=== PATIENT | female | born 1980 | race Caucasian/White ===

== ENCOUNTER 2018-03-29 11:10 | Emergency (ER) | payer BC, MEDICAID ==
[2018-03-29] MEDS ORDERED: LORAZEPAM 2 MG/ML VIAL IV ONE (11:31)
--- NOTE | 2018-03-29 11:31 | Emergency Department Record ---
History of Present Illness - General Chief Complaint: Shortness of breath Stated Complaint: BREANN.CHEST TIGHNESS Time Seen by Provider: 03/29/18 11:21 Source: Patient Mode of Arrival: Ambulatory Limitations: No limitations - History of Present Illness Initial Comments: The patient is here due to having an anxiety attack for the last 2 hours. She has had R sided posterior neck pain with radiation to the R arm for about 10 days. The pain is worse with movement and ROM of the neck and arm. She has seen a chiropracter for it twice with little relief. Today she has developed R upper sharp stabbing CP that seems to be worse with deep breathing which is causing her to have an anxiety attack which she has a hx of. There has been no L sided CP, fever, cough, sputum production, leg pain, swelling, or recent travel. MD Complaint: Anxiety, Shortness of breath Onset/Timin -: Minutes(s) Improves With: Nothing Worsens With: Nothing Associated Symptoms: Denies other symptoms, Nausea/vomiting - Related Data Previous Rx's Medication Instructions Recorded Methylprednisolone [Medrol Dose 4 mg PO DAILY #1 tab.ds.pk 03/29/18 Pack] Allergies Allergy/AdvReac Type Severity Reaction Status Date / Time Sulfa (Sulfonamide Allergy Unknown HIVES Verified 03/29/18 11:23 Antibiotics) [SULFA (SULFONAMIDE ANTIBIOTICS)] Travel Screening - Travel/Exposure Within Last 30 Days Have you traveled within the last 30 days?: No - Travel/Exposure Within Last Year Have you traveled outside the [place] in the last year?: No - Additonal Travel Details Have you been exposed to anyone with a communicable illness?: No - Travel Symptoms Symptom Screening: None Review of Systems Constitutional: Denies: Chills, Fever Eyes: Denies: Eye discharge ENT: Denies: Congestion Respiratory: Denies: Cough, Dyspnea Cardiovascular: Denies: Arrhythmia Endocrine: Denies: Fatigue Gastrointestinal: Denies: Diarrhea, Vomiting Genitourinary: Denies: Dysuria Musculoskeletal: Denies: Back pain Skin: Denies: Bruising Past Medical History - SOCIAL HISTORY Smoking Status: Never smoker Alcohol Use: None Drug Use: None - RESPIRATORY Hx Respiratory Disorders: Yes Hx Asthma: Yes (sports induced) - CARDIOVASCULAR Hx Cardio Disorders: No - NEURO Hx Neuro Disorders: No - GI Hx GI Disorders: No - Hx Genitourinary Disorders: No - ENDOCRINE Hx Endocrine Disorders: Yes Hx Diabetes: No Hx Thyroid Disease: Yes - MUSCULOSKELETAL Hx Musculoskeletal Disorders: No - PSYCH Hx Psych Problems: Yes Hx Anxiety: Yes - HEMATOLOGY/ONCOLOGY Hx Hematology/Oncology Disorders: No Family Medical History Any Significant Family History?: No Physical Exam - General General Appearance: Alert, Oriented x3, Cooperative, Anxious - Head Head exam: Atraumatic, Normocephalic - Eye Eye exam: Normal appearance, PERRL - Neck Neck exam: Normal inspection, Full ROM. negative: Tenderness - Respiratory Respiratory exam: Normal lung sounds bilaterally, Chest wall tenderness (There is R upper chest wall tenderness.). negative: Respiratory distress - Cardiovascular Cardiovascular Exam: Regular rate, Normal rhythm, Normal heart sounds - GI/Abdominal GI/Abdominal exam: Soft, Normal bowel sounds. negative: Tenderness - Extremities Extremities exam: Normal inspection, Full ROM, Normal capillary refill. negative: Calf tenderness, Pedal edema, Tenderness - Back Back exam: Reports: Normal inspection - Neurological Neurological exam: Alert, Altered, Normal gait, Oriented X3. negative: Abnormal gait, Motor sensory deficit - Psychiatric Psychiatric exam: Anxious Course Vital Signs 03/29/18 11:11 Temperature 97.5 F L Pulse Rate 135 H Respiratory 20 Rate Blood Pressure 135/85 Pulse Ox 100 - Reevaluation(s) Reevaluation #1: The patient is doing a lot better at this time. She denies any CP or SOB and is having no BREANN or pleuritic pain. Her hr is now 75 and the anxiety is improved with the Ativan. She is still having the R upper neck and back pain but it has been the same for about 10 days. 03/29/18 12:54 Reevaluation #2: The patient is doing a lot better at this time. Her CP and SOB and anxiety have resolved. She is still having the R upper back and neck pain but that has been present for 10 days. I did discuss the neg test results and the plan to check a 2nd TROP and discharge if neg. 03/29/18 14:09 Reevaluation #3: The patient is doing a lot better at this time. She is resting comfortably and ready for home. I did discuss the repeat Trop was neg and the need for f/u with her PCP. 03/29/18 15:04 Medical Decision Making - Data Complexity MDM Data: Labs Ordered and/or Reviewed, X-Ray Ordered and/or Reviewed, EKG Ordered and/or Reviewed - Lab Data Result diagrams: 03/29/18 11:20 03/29/18 11:20 - EKG Data -: EKG Interpreted by Me EKG: No Acute Changes, Normal EKG - Radiology Data Radiology results: Report reviewed (CXR: Neg Chest CT: neg for PE.) Disposition Disposition: Discharge Clinical Impression: Chest pain, atypical Disposition: Home, Self-Care Condition: (2) Stable Instructions: Cervical Radiculopathy (ED), Anxiety (ED) Additional Instructions: Please use the Ativan for anxiety and take the Medrol dose pack as directed. Please see your family doctor for recheck this week. Return to the ER for any worsening pain, arm or leg numbness, weakness or any bowel or bladder issues. Prescriptions: Methylprednisolone [Medrol Dose Pack] 4 mg PO DAILY #1 tab.ds.pk Forms: Patient Portal Access Time of Disposition: 15:06 Quality - Quality Measures Quality Measures: N/A - Blood Pressure Screening View Details: Yes Does Patient Have Any of the Following: No Blood Pressure Classification: Pre-Hypertensive BP Reading Systolic Measurement: 135 Diastolic Measurement: 85 Screening for High Blood Pressure: < Pre-Hypertensive BP, F/U Documented > [ [id number]] Pre-Hypertensive Follow-up Interventions: Referral to alternative/primary care provider.
[2018-03-29 11:45] LABS: BASO % 0.4 % (0-6); EOS % 1.1 % (0-6); GRAN % 60.2 % (47-80); HEMATOCRIT 44.7 % (35.0-47.0); HEMOGLOBIN 14.2 gm/dl (11.6-16.0); LYMPH % 33.8 % (16-45); MEAN CELL VOLUME 85.6 fl (81-97); MEAN CORPUSCULAR HEMOGLOBIN 27.2 pg (27-33); MEAN CORPUSCULAR HGB CONC 31.8 g/dl (32-36); MEAN PLATELET VOLUME 9.9 fl (7.4-10.4); MONO % 4.5 % (0-9); PLATELET COUNT 443 K/uL (130-400); RED BLOOD COUNT 5.22 M/uL (3.80-5.40); WHITE BLOOD COUNT W/O DIFF 9.9 K/uL (4.2-12.2)
[2018-03-29] MEDS ORDERED: KETOROLAC 30 MG/ML VIAL IVP ONE (11:51)
[2018-03-29] MEDS ORDERED: 0.9 % SODIUM CHLORIDE 1,000 ML BAG IV ONE (11:53)
[2018-03-29 11:57] LABS: BLOOD UREA NITROGEN 8 mg/dL (6-20); CREATININE 0.5 mg/dL (0.5-0.9); EST GLOMERULAR FILTRATION RATE > 60 mL/min
[2018-03-29 11:58] LABS: TOTAL PROTEIN 8.3 g/dL (6.6-8.7)
[2018-03-29 12:00] LABS: GLUCOSE,RANDOM 102 mg/dL (74-109)
[2018-03-29 12:02] LABS: ALT/SGPT 17 U/L (<33); AST/SGOT 32 U/L (10.0-35.0)
[2018-03-29 12:03] LABS: ALB/GLOB RATIO 1.2 (1.1-1.8); ALBUMIN 4.5 g/dL (4.0-5.0); ALKALINE PHOSPHATASE 96 U/L (35-104)
[2018-03-29] MEDS ORDERED: ACETAMINOPHEN 1,000 MG/100 ML BTL IVPB ONE (13:18)
[2018-03-29] MEDS ORDERED: LORAZEPAM 0.5 MG TABLET PO ONE (15:06)
--- NOTE | 2018-03-30 13:32 | RADIOLOGY REPORT ---
EXAM: CHEST, TWO VIEWS HISTORY: RIGHT SIDED CHEST PAIN AND ARM PAIN WHICH HAVE PROGRESSED OVER THE LAST FIVE DAYS. TECHNIQUE: Two views of the chest were obtained. Comparison: None. FINDINGS: The heart is not enlarged. The lungs and pleural spaces are clear. IMPRESSION: NO ACUTE CARDIOPULMONARY ABNORMALITY. JOB NUMBER: [id number] MTDD
--- NOTE | 2018-03-30 13:44 | CT ANGIOGRAM REPORT ---
EXAM: CTA OF THE CHEST HISTORY: NECK AND ARM PAIN, DYSPNEA. TECHNIQUE: Routine CT angiography images of the chest were obtained following intravenous administration of contrast, the amount and type of contrast is noted in the medical record. 3D/MIP images were obtained for further assessment. Comparison: None. FINDINGS: The heart is not enlarged. No pericardial effusion. The aorta enhances normally with contrast. No central filling defects in the pulmonary arteries to suggest acute PE. No mediastinal or hilar lymph node enlargement. The lungs are free of focal consolidation. No pleural effusion or pneumothorax. The visualized upper abdomen is unremarkable. No acute osseous abnormality. IMPRESSION: NO ACUTE INTRATHORACIC ABNORMALITIES. SPECIFICALLY, NO EVIDENCE FOR PE. JOB NUMBER: [id number] MTDD
== END 2018-03-29 15:17 | disposition home or self-care (01) ==
LOC: ER 11:10
DX: R07.89 Other chest pain (principal); R06.02 Shortness of breath; R11.2 Nausea with vomiting, unspecified; M54.2 Cervicalgia; R79.89 Other specified abnormal findings of blood chemistry
CPT/HCPCS: 99284 ×2; 96365; 96366; 96375; 85025; 80053; 84484; 85379; 71046; 71275; 93005; 93010; Q9967; J1885; J2060; J7030